=== PATIENT | male | born 1945 | race Caucasian/White ===

== ENCOUNTER 2017-01-08 11:00 | Emergency (ER) | payer MEDICARE ==
--- NOTE | ~2017-01-08 | ER ---
PATIENT'S NAME: Andi [facility] AGE: 71 Y [address] ROOM: [place] [address] LOCATION: [facility] ADMIT DATE: 01/08/2017 ER/Outpatient Report DISCHARGE DATE: 01/08/2017 FAMILY PHYSICIAN: Bryson Cohen MD ATTENDING PHYSICIAN: Abdullahi Juarez Time of Patient Arrival: 1100 hours. Time of Patient Evaluation: 1105 hours. CHIEF COMPLAINT: Wrist injury from fall. HISTORY OF PRESENT ILLNESS: This is a 71-year-old male who presents to the ER who states he was up on a ladder in his garage and the ladder tripped and fell approximately 4 feet and caught himself with his left wrist. He states he did sustain some small abrasions to his right palm, but he states he did not hit his head. He denies any neck or back pain. No hip pain. No other extremity pain at this time. ALLERGIES: BEXTRA AND LATEX. MEDICATIONS: Please see medication list in nurse's notes. PAST MEDICAL HISTORY: Hypertension, arthritis, he has had a cervical fusion. SOCIAL HISTORY: Denies smoking use, drinks alcohol occasionally. REVIEW OF SYSTEMS: CONSTITUTIONAL: Denies any change in weight or fatigue. MUSCULOSKELETAL: He is complaining of left wrist pain. HEME: No easy bruising or bleeding. SKIN: He has abrasions to his right hand. PHYSICAL EXAMINATION: VITAL SIGNS: Weight 83 kg taken, blood pressure is 122/90, pulse 65, respirations 20, temperature 97 degrees tympanically, and saturations 95% on room air. David Coma Score is 15. GENERAL: Alert, calm, well-developed 71-year-old, in no acute distress. LUNGS: Clear to auscultation bilaterally. HEART: Regular rate and rhythm. EXTREMITIES: No clubbing or cyanosis. He does have full range of motion of PATIENT'S NAME: Andi FOWLER [facility] AGE: 71 Y [address] ROOM: [place] [address] LOCATION: [facility] ADMIT DATE: 01/08/2017 ER/Outpatient Report DISCHARGE DATE: 01/08/2017 FAMILY PHYSICIAN: Bryson Cohen MD ATTENDING PHYSICIAN: Abdullahi Juarez all limbs. He has mild pain with flexion and extension of his left wrist. I cannot elicit any pain with palpation over the any of the bony aspects. SKIN: He has some small abrasions noted to the palm of his right hand. LABORATORY DATA: None were done. X-RAYS: The left wrist show no obvious fracture. He does have shrapnel in his hand, but the patient is aware of this. IMPRESSION: 1. Left wrist injury from fall. 2. Abrasions to right palm. ASSESSMENT AND PLAN: We will place the patient in a wrist splint for support. We did update him on his tetanus shot. He may take Tylenol and ibuprofen as needed for pain control. Ice any sore areas. Follow up with primary care physician as needed. The patient understands and agrees with care. ADITI KO PA-C FOR DO HARSH MERRITT/froylan /[id number] d: t: 01/13/17 1216, OUTPATIENT REPORT
== END 2017-01-08 11:35 | disposition disaster alternative care site (69) ==
LOC: GACC 11:00
PROC: 2W3DX1Z Immobilization of Left Lower Arm using Splint (ICD-10-PCS; principal; 2017-01-08)
DX: S69.92XA Unspecified injury of left wrist, hand and finger(s), initial encounter (principal); S60.511A Abrasion of right hand, initial encounter; I10 Essential (primary) hypertension; Z98.1 Arthrodesis status; Z91.040 Latex allergy status; Z79.899 Other long term (current) drug therapy; W11.XXXA Fall on and from ladder, initial encounter; Z23 Encounter for immunization